=== PATIENT | male | born 1965 | race American Indian/Alaskan Native ===

== ENCOUNTER 2020-03-30 21:10 | Emergency (ER) | payer BC ==
[2020-03-30] MEDS ORDERED: IBUPROFEN 800 MG TAB PO ONE (23:44)
[2020-03-30] MEDS ORDERED: CLINDAMYCIN 300 MG CAP PO ONE (23:44)
[2020-03-30] MEDS ORDERED: SULFAMETHOXAZOLE/TRIMETHOPRIM 800/160MG DS TAB PO ONE (23:45)
--- NOTE | 2020-03-30 23:50 | Emergency Department Report ---
ED General Adult HPI - General Chief complaint: Skin Rash Stated complaint: RASH Source: patient Mode of arrival: Ambulatory Limitations: No Limitations - History of Present Illness Initial comments: Patient is a 55-year-old -[place] male with a history of hypertension who presents to the ED with complaint of acute onset persistent painful erythematous maculopapular itchy rash for the last 2 days. Patient states that the redness and the swelling as well as the pain have worsened in the last 12 hours. Patient states that he contacted his primary care physician about 8 hours ago but was advised to come to the ED for further evaluation or wait until the weekend is over to follow-up with his primary care physician on the [id number] exam. Patient states that he could not wait for 2 more days since the rash has significantly spread since the onset 2 days ago. Patient denies dizziness, syncope, fever, chills, nausea, vomiting, chest pain, shortness of breath, traumatic injury, numbness and tingling or weakness of lower extremities bilaterally, fall, headache, back pain or abdominal pain. MD Complaint: Left lower leg swollen erythematous maculopapular rash -: Sudden, days(s) (2) Location: lower extremity (left lower leg) Radiation: non-radiation Severity scale (0 -10): 7 Quality: burning, aching, sharp Consistency: constant Improves with: none Worsens with: none Associated Symptoms: denies other symptoms, rash (Erythematous maculopapular itchy painful rash on left lower leg). denies: confusion, chest pain, cough, diaphoresis, fever/chills, headaches, loss of appetite, malaise, seizure, shortness of breath, syncope, weakness, other - Related Data Previous Rx's Medication Instructions Recorded Last Taken Type Clindamycin [Clindamycin CAP] 300 mg PO Q8HR #60 capsule 03/30/20 Unknown Rx Ibuprofen [Motrin] 600 mg PO Q8H PRN #30 tablet 03/30/20 Unknown Rx Ondansetron [Zofran Odt] 4 mg PO Q6HR PRN #15 tab.rapdis 03/30/20 Unknown Rx Sulfamethoxazole/Trimethoprim 1 each PO Q12H #20 tablet 03/30/20 Unknown Rx [Bactrim DS TAB] Allergies Allergy/AdvReac Type Severity Reaction Status Date / Time No Known Allergies Allergy Unverified 11/13/20 23:17 ED Review of Systems ROS: Stated complaint: RASH Other details as noted in HPI Constitutional: denies: chills, fever Eyes: denies: eye pain, eye discharge, vision change ENT: denies: ear pain, throat pain Respiratory: denies: cough, shortness of breath, wheezing Cardiovascular: denies: chest pain, palpitations Endocrine: no symptoms reported Gastrointestinal: denies: abdominal pain, nausea, diarrhea Genitourinary: denies: urgency, dysuria Musculoskeletal: arthralgia (Left lower leg pain due to erythematous maculopapular itchy rash). denies: back pain, joint swelling Skin: rash (Erythematous maculopapular itchy painful rash on left lower leg), change in color, pruritus. denies: lesions Neurological: denies: headache, weakness, paresthesias Psychiatric: denies: anxiety, depression Hematological/Lymphatic: denies: easy bleeding, easy bruising ED Past Medical Hx - Past Medical History Previous Medical History?: Yes Hx Hypertension: Yes - Surgical History Past Surgical History?: No - Social History Smoking Status: Current Every Day Smoker Substance Use Type: None - Medications Home Medications: Home Medications Medication Instructions Recorded Confirmed Last Taken Type Clindamycin [Clindamycin CAP] 300 mg PO Q8HR #60 capsule 03/30/20 Unknown Rx Ibuprofen [Motrin] 600 mg PO Q8H PRN #30 tablet 03/30/20 Unknown Rx Ondansetron [Zofran Odt] 4 mg PO Q6HR PRN #15 tab.rapdis 03/30/20 Unknown Rx Sulfamethoxazole/Trimethoprim 1 each PO Q12H #20 tablet 03/30/20 Unknown Rx [Bactrim DS TAB] ED Physical Exam - General Limitations: No Limitations General appearance: alert, in no apparent distress - Head Head exam: Present: atraumatic, normocephalic, normal inspection - Eye Eye exam: Present: normal appearance, PERRL, EOMI Pupils: Present: normal accommodation - ENT ENT exam: Present: normal exam, normal orophraynx, mucous membranes moist, TM's normal bilaterally, normal external ear exam - Neck Neck exam: Present: normal inspection, full ROM. Absent: tenderness - Respiratory Respiratory exam: Present: normal lung sounds bilaterally. Absent: respiratory distress, wheezes, rales, stridor, chest wall tenderness, accessory muscle use, decreased breath sounds, prolonged expiratory - Cardiovascular Cardiovascular Exam: Present: regular rate, normal rhythm, normal heart sounds. Absent: systolic murmur, diastolic murmur, rubs, gallop - GI/Abdominal GI/Abdominal exam: Present: soft, normal bowel sounds. Absent: tenderness, guarding, rebound, hyperactive bowel sounds, hypoactive bowel sounds - Extremities Exam Extremities exam: Present: normal inspection, full ROM, tenderness (Palpable erythematous maculopapular nonfluctuant rash with localized tenderness on left lower leg), normal capillary refill, calf tenderness (Due to erythematous maculopapular rash on left lower leg). Absent: pedal edema, joint swelling - Back Exam Back exam: Present: normal inspection, full ROM. Absent: tenderness, CVA tenderness (R), CVA tenderness (L), muscle spasm, paraspinal tenderness, vertebral tenderness - Neurological Exam Neurological exam: Present: alert, oriented X3, CN II-XII intact, normal gait, reflexes normal - Psychiatric Psychiatric exam: Present: normal affect, normal mood - Skin Skin exam: Present: warm, dry, intact, normal color, rash (Erythematous maculopapular nonfluctuant rash on left lower leg and calf with localized palpable tenderness), erythema ED Course Vital Signs 03/30/20 23:06 Temperature 98.7 F Pulse Rate 85 Respiratory 16 Rate Blood Pressure 114/72 O2 Sat by Pulse 95 Oximetry ED Medical Decision Making - Medical Decision Making This is a 55-year-old -[place] male with a history of hypertension who presents to the ED with complaint of acute onset persistent painful erythematous maculopapular itchy rash for the last 2 days. Patient states that the redness and the swelling as well as the pain have worsened in the last 12 hours. Patient states that he contacted his primary care physician about 8 hours ago but was advised to come to the ED for further evaluation or wait until the weekend is over to follow-up with his primary care physician on the [id number] exam. Patient states that he could not wait for 2 more days since the rash has significantly spread since the onset 2 days ago. In the ED, patient is alert and oriented x3 and is not in distress. Patient was treated initially for pain in the ED and also given initial oral antibiotics in the ED. Patient was discharged home on antibiotics and pain medications and was advised to follow-up with his primary care physician in 3 to 5 days for reevaluation or return to the ED immediately if symptoms get worse. - Differential Diagnosis cellulitis; insect bite allergy; folliculitis; Cutaneous abscess; shingles Critical care attestation.: If time is entered above; I have spent that time in minutes in the direct care of this critically ill patient, excluding procedure time. ED Disposition Clinical Impression: Cellulitis of left lower extremity without foot, Itching with irritation Disposition: DC- TO HOME OR SELFCARE Is pt being admited?: No Does the pt Need Aspirin: No Condition: Stable Instructions: Cellulitis, Adult, [id number] Additional Instructions: His symptoms are likely due to cellulitis, the cause of which is unknown. Therefore take pain medications as needed and the antibiotics as scheduled. Follow-up with your primary care physician in 5 to 7 days for reevaluation or return to the ED immediately if symptoms get worse. Prescriptions: Sulfamethoxazole/Trimethoprim [Bactrim DS TAB] 1 each PO Q12H #20 tablet Clindamycin [Clindamycin CAP] 300 mg PO Q8HR #60 capsule Ibuprofen [Motrin] 600 mg PO Q8H PRN #30 tablet PRN Reason: Pain Ondansetron [Zofran Odt] 4 mg PO Q6HR PRN #15 tab.rapdis PRN Reason: Nausea Referrals: JEREMÍAS NESBITT MD [Primary Care Provider] - 3-5 Days Time of Disposition: 23:53 Print Language: CROATIAN
[2020-03-31 01:55] VITALS: BP 120/72
== END 2020-03-31 00:19 | disposition home or self-care (01) ==
LOC: ED 21:10
DX: L03.116 Cellulitis of left lower limb (principal); L29.9 Pruritus, unspecified; I10 Essential (primary) hypertension; F17.200 Nicotine dependence, unspecified, uncomplicated; Z79.1 Long term (current) use of non-steroidal anti-inflammatories (NSAID); Z79.2 Long term (current) use of antibiotics; Z79.899 Other long term (current) drug therapy
CPT/HCPCS: 99282